=== PATIENT | female | born 1990 | race American Indian/Alaskan Native ===

== ENCOUNTER 2020-04-14 01:00 | Emergency (ER) | payer SELFPAY ==
[2020-04-14 01:25] VITALS: BP 129/85
--- NOTE | 2020-04-14 02:11 | XRay Report ---
RIGHT HAND 3 VIEW(S) INDICATION / CLINICAL INFORMATION: right hand pain COMPARISON: None available. FINDINGS: BONES / JOINT(S): No acute fracture or subluxation. No significant arthritis. SOFT TISSUES: No significant abnormality. ADDITIONAL FINDINGS: None. Signer Name: Alvin Louis MD Signed: 04/14/2020 2:06 AM Workstation Name: [id number]
--- NOTE | 2020-04-14 02:55 | Emergency Department Report ---
ED Fall HPI - General Chief Complaint: Extremity Injury, Upper Stated Complaint: RT HAND BONE DISLOCATION Time Seen by Provider: 04/14/20 02:03 Source: patient Mode of arrival: Ambulatory - History of Present Illness Initial Comments: 29-year-old female was jumping on a trampoline fell down striking her left hand causing pain to her wrist and hand as well as a cystic-like mass in the base of the thumb/wrist region. Reports no numbness or tingling, no fever, chills, sweats. No chest pain or palpitation MD Complaint: fall -: Sudden Fall From: standing Loss of Consciousness: none Prolonged Down Time?: yes Location - Extremities: Right: Hand Severity: mild Quality: dull Associated Symptoms: denies: neck pain, numbness - Related Data Allergies Allergy/AdvReac Type Severity Reaction Status Date / Time No Known Allergies Allergy Unverified 04/14/20 01:25 ED Review of Systems ROS: Stated complaint: RT HAND BONE DISLOCATION Other details as noted in HPI Comment: All other systems reviewed and negative ED Past Medical Hx - Past Medical History Previous Medical History?: Yes Additional medical history: Sciatica - Surgical History Past Surgical History?: No - Social History Smoking Status: Current Some Day Smoker Substance Use Type: None ED Physical Exam - General Limitations: No Limitations General appearance: alert, in no apparent distress - Head Head exam: Present: atraumatic, normocephalic - Eye Eye exam: Present: normal appearance, PERRL, EOMI Pupils: Present: normal accommodation - ENT ENT exam: Present: mucous membranes moist - Neck Neck exam: Present: normal inspection - Respiratory Respiratory exam: Present: normal lung sounds bilaterally. Absent: respiratory distress - Cardiovascular Cardiovascular Exam: Present: regular rate, normal rhythm. Absent: systolic murmur, diastolic murmur, rubs, gallop - GI/Abdominal GI/Abdominal exam: Present: soft, normal bowel sounds - Extremities Exam Extremities exam: Present: normal inspection, tenderness, normal capillary refill - Expanded Upper Extremity Exam Right Forearm Wrist exam: Present: tenderness. Absent: crepidus, erythema Hand Wrist exam: Present: tenderness. Absent: swelling, abrasion, laceration, ecchymosis, crepidus, dislocation, amputation, nail avulsion - Back Exam Back exam: Present: normal inspection - Neurological Exam Neurological exam: Present: alert, oriented X3 - Psychiatric Psychiatric exam: Present: normal affect, normal mood - Skin Skin exam: Present: warm, dry, intact, normal color. Absent: rash ED Course Vital Signs 04/14/20 01:23 Temperature 98.1 F Pulse Rate 87 Respiratory 18 Rate Blood Pressure 129/85 O2 Sat by Pulse 100 Oximetry ED Medical Decision Making - Radiology Data Radiology results: report reviewed [facility] [address] [place] [address] XRay Report Signed Patient: JOSE L BARAHONA MR#: [id number] : 1990 Acct:[id number] Age/Sex: 29 / F ADM Date: 04/14/20 Loc: ED Attending Dr: Ordering Physician: ASTRID THOMSON MD Date of Service: 04/14/20 Procedure(s): XR hand 3+V RT Accession Number(s): [id number] cc: ASTRID THOMSON MD Fluoro Time In Minutes: RIGHT HAND 3 VIEW(S) INDICATION / CLINICAL INFORMATION: right hand pain COMPARISON: None available. FINDINGS: BONES / JOINT(S): No acute fracture or subluxation. No significant arthritis. SOFT TISSUES: No significant abnormality. ADDITIONAL FINDINGS: None. Signer Name: Alvin Louis MD Signed: 04/14/2020 2:06 AM Workstation Name: [id number] Transcribed By: TL Dictated By: Alvin Louis MD Electronically Authenticated By: Alvin Louis MD Signed Date/Time: 04/14/20205 DD/ 5 TD/TT: Critical care attestation.: If time is entered above; I have spent that time in minutes in the direct care of this critically ill patient, excluding procedure time. ED Disposition Clinical Impression: Wrist pain, Synovial cyst of right wrist Disposition: DC-01 TO HOME OR SELFCARE Is pt being admited?: No Does the pt Need Aspirin: No Condition: Stable Instructions: Musculoskeletal Pain, How to Use Cold Therapy, Wrist Pain, Adult Referrals: PRIMARY CAREMD [Primary Care Provider] - 3-5 Days RENEE MEREDITH MD [Staff Physician] - 3-5 Days
== END 2020-04-14 03:03 | disposition home or self-care (01) ==
LOC: ED 01:00
DX: M71.331 Other bursal cyst, right wrist (principal); F17.200 Nicotine dependence, unspecified, uncomplicated
CPT/HCPCS: 99283